=== PATIENT | male | born 1940 | race Caucasian/White ===

== ENCOUNTER 2016-09-21 08:21 | Inpatient (IN) | payer OTHER, MEDICARE ==
[~2016-09-21 08:21] MED LIST: ACETAMINOPHEN 325 MG TAB PO ONE; BISACODYL 10 MG SUPP PR PRN; CHLORHEXIDINE GLUC HIBICLENS 118 ML BTL TP ONE; CYCLOBENZAPRINE 10 MG TAB PO PRN; DIPHENOXYLATE/ATROPINE LOMOTIL 1 TAB PO PRN; FAMOTIDINE 20 MG TAB PO ONE; LACTULOSE 20 GM/30 ML UDCUP PO PRN; LR 1,000 ML IV SCH; MAGNESIUM HYDROXIDE 30 ML UDCUP PO PRN; METOCLOPRAMIDE 10 MG/2 ML VIAL IVP PRN; ONDANSETRON 4 MG/2 ML VIAL IVP PRN; ONDANSETRON DISINTEGRATING 4 MG TAB PO PRN; PHARMACY PAIN CONSULT 1 EA MISC PRN; POLYETHYLENE GLYCOL 3350 17 GM PKT PO PRN; PROMETHAZINE HCL 25 MG SUPPR PR PRN; PROMETHAZINE HCL 25 MG/ML VIAL IVP PRN; ROPI/epiNEPH/KETOROLAC/morphINE JOINT COCKTAIL IU ONE; TEMAZEPAM 15 MG CAP PO PRN; diphenhydrAMINE 25 MG CAP PO PRN
[2016-09-21] MEDS ORDERED: LR 1,000 ML IV ONE (08:38)
[2016-09-21] MEDS ORDERED: LIDOCAINE 1% 5 ML SDV ID PRN (08:38)
[2016-09-21] MEDS ORDERED: ACETAMINOPHEN 325 MG TAB ONE (08:48)
[2016-09-21] MEDS ORDERED: CEFAZOLIN 2 GM/DEXTROSE/100 ML BAG IV ONE (08:48)
[2016-09-21] MEDS ORDERED: FAMOTIDINE 20 MG TAB ONE (08:49)
[2016-09-21] MEDS ORDERED: LIDOCAINE 1% 5 ML SDV ONE (08:50)
[2016-09-21] MEDS ORDERED: MIDAZOLAM 2 MG/2 ML VIAL ONE (11:04)
[2016-09-21] MEDS ORDERED: PROPOFOL 200 MG/20 ML VIAL ONE ×2 (12:16→13:08)
[2016-09-21] MEDS ORDERED: ROPIVACAINE HCL 150 MG/30 ML INJ ONE (12:16)
--- NOTE | 2016-09-21 14:36 | DX ---
Two Views Left Knee: History: Postoperative followup. Comparison: Left knee June 03, 2016. Findings: Postoperative changes of total knee arthroplasty are noted. Alignment is anatomic. No compl ication is seen. Vascular and diffuse soft tissue calcifications are again noted. Impression: Status post total knee arthroplasty with no visible complications.
[2016-09-21] MEDS: oxyCODONE IR 5 MG TAB PO PRN ×4 (15:37→21:56)
[2016-09-21] MEDS: metFORMIN HCL 500 MG TAB PO SCH (16:01)
[2016-09-21] MEDS: ACETAMINOPHEN 325 MG TAB PO SCH ×3 (17:15→23:47)
[2016-09-21] MEDS: SENNOSIDES/DOCUSATE SODIUM TAB PO SCH ×2 (18:03→20:38)
[2016-09-21] MEDS ORDERED: NS BOLUS 1000 ML (Wide open) IV ONE (20:00)
[2016-09-21] MEDS: ceFAZolin 2 GM/DEXTROSE 100 ML IV SCH (20:35)
[2016-09-21] MEDS: ASPIRIN 325 MG TAB PO SCH (20:37)
[2016-09-21] MEDS: FAMOTIDINE 20 MG TAB PO SCH (20:37)
--- NOTE | 2016-09-21 20:55 | GCON ---
[f rep st] CONSULTATION MEDICINE CONSULTATION DATE OF CONSULTATION: 09/21/2016 CHIEF COMPLAINT: Lightheadedness and hypotension. HISTORY OF PRESENT ILLNESS: The patient is a 75-year-old male with a history of osteoarthritis who was admitted to the hospital by his orthopedic surgeon today and underwent total knee arthroplasty this afternoon. He did well initially postoperatively. However, this evening he began to complain of lightheadedness. His nurse noted that his blood pressure trended down, as low as the 60s systolic with the heart rate dipping into the 30s. At this point, his orthopedic surgeon was consulted and a Medicine consultation was requested. I immediately went to the bedside, at which time he was over fpc through a normal saline bolus. He reported that his lightheadedness and dizziness symptoms had resolved. He denied chest pain, shortness of breath, nausea, vomiting, or abdominal pain. He has had some postop pain which has been controlled with Tylenol and oxycodone. Per review of his perioperative course, he had just 400 cc fluid in during his surgery. Postoperatively, his blood pressure was 150/100, and he then received his usual antihypertensive medications, including 10 mg of amlodipine. He then dropped his blood pressure as above and became symptomatic. PAST MEDICAL HISTORY: 1. Osteoarthritis. 2. Hypertension. 3. History of CVA. 4. Prediabetes. 5. Hyperlipidemia. PAST SURGICAL HISTORY: Total knee arthroplasty. MEDICATIONS: Please see [facility] for completed, updated outpatient medication list. ALLERGIES: Amoxicillin. FAMILY HISTORY: Reviewed and is noncontributory. SOCIAL HISTORY: The patient lives independently. He denies tobacco use. REVIEW OF SYSTEMS: A 10-point review of systems was performed and was negative , except as per HPI. OBJECTIVE: VITAL SIGNS: Upon arrival to the bedside, his blood pressure was 68 /51, heart rate was 45, respiratory rate 20, he was 100% on 1.5 L of oxygen. He had a normal saline bolus going and wide-open and a repeat blood pressure fpc through this bolus was 123/83 with a heart rate of 62. GENERAL: The patient is awake, alert and oriented, in no acute distress. HEENT: Head is atraumatic, normocephalic. Pupils equal, round, and reactive to light. Extraocular muscles intact. Oropharynx is clear. Mucous membranes are moist. NECK: Supple. There is no JVD. HEART: Regular rate and rhythm without murmur. LUNGS: Clear to auscultation bilaterally. ABDOMEN: Soft, nontender. Normoactive bowel tone. EXTREMITIES: Left lower extremity is expectedly edematous in the postop setting. Dressing is in place; clean, dry and intact. His extremities are otherwise warm and well perfused. NEUROLOGIC: Exam is grossly nonfocal. LABORATORY DATA: His blood sugar this afternoon is 154. ASSESSMENT AND PLAN: The patient is a 75-year-old male who was admitted to the hospital for elective total knee arthroplasty and developed postoperative hypotension. 1. Hypotension. I suspect this is a volume issue, as he had only 400 cc of fluid during surgery, and he then received 10 mg of Norvasc prior to dropping his blood pressure. He responded beautifully to a 1 L normal saline bolus with a repeat blood pressure in the 120s over 80s. Will continue him on maintenance fluids and will pursue further workup should he have recurrent hypotension ( would consider PE, adrenal insufficiency, infection), but at this point I think he simply needed volume, to which he has responded well. I am going to hold his antihypertensives for now and these can be resumed as indicated once his blood pressure improves. 2. Bradycardia. This was in the setting of hypotension, likely secondary to volume depletion. His bradycardia resolved with correction of his blood pressure after a fluid bolus. Will monitor him on telemetry tonight to ensure no recurrent bradycardia. Low threshold for atropine should this recur. Would obtain a cardiology consult at that point as well. 3. Total knee arthroplasty, postop day 0. Postop management per Orthopedic Surgery. 4. Deep venous thrombosis prophylaxis. Will defer to the Surgery Service. CODE STATUS: The patient is full code. /[id number]/MODL MTDD
[2016-09-22] MEDS: oxyCODONE IR 5 MG TAB PO PRN ×4 (00:47→16:29)
[2016-09-22] MEDS: ceFAZolin 2 GM/DEXTROSE 100 ML IV SCH (04:32)
[2016-09-22] MEDS: ACETAMINOPHEN 325 MG TAB PO SCH ×2 (04:32→12:00)
[2016-09-22 05:40] LABS: HEMATOCRIT 31.1 % (40.0-51.0); HEMOGLOBIN 10.5 g/dL (13.7-17.5)
[2016-09-22] MEDS: FAMOTIDINE 20 MG TAB PO SCH (08:40)
[2016-09-22] MEDS: ASPIRIN 325 MG TAB PO SCH (08:40)
[2016-09-22] MEDS: SENNOSIDES/DOCUSATE SODIUM TAB PO SCH (08:40)
[2016-09-22] MEDS: metFORMIN HCL 500 MG TAB PO SCH (08:41)
[2016-09-22] MEDS ORDERED: LISINOPRIL/HCTZ 20/12.5MG 1 EA TAB PO SCH (09:00)
[2016-09-22] MEDS ORDERED: HYDROCHLOROTHIAZIDE 12.5 MG CAP PO SCH (09:00)
[2016-09-22] MEDS ORDERED: PRAVASTATIN SODIUM 40 MG TAB PO SCH (09:00)
[2016-09-22 11:25] VITALS: RESP 18; TEMP 98.4
--- NOTE | 2016-09-22 12:06 | SOAPPROG ---
SOAP Progress Note Assessment/Plan: Assessment: s/.p tka Plan: wbat d/c home once urinates seek attn for increasing pain and or complaint 09/22/16 12:04 s.p Subjective: unable to void not uncomfortable no cp or sob Objective: Vital Signs Temp Pulse Resp BP Pulse Ox 36.9 C 69 18 144/62 H 91 L 09/22/16 11:20 09/22/16 11:20 09/22/16 11:20 09/22/16 11:20 09/22/16 11:20 Laboratory Results 09/22/16 04:41 09/21/16 09/22/16 09/23/16 05:59 05:59 05:59 Intake Total 5000 250 Output Total 1820 Balance 3180 250 dressing intact \intact pf,df,ehl toes warm and pink neg homans xrays stable alignemnt no fx or lucencyt ICD10 Worksheet Patient Problems: Problems Problem Status Diagnosed Arthritis of knee Acute - ICD10 Problem Qualifiers (1) Arthritis of knee
--- NOTE | 2016-09-22 12:08 | PDIAF ---
- Diagnosis Diagnosis: knee djd Code Status: Full Code - Medication Management Discharge Medications: Medications to Continue on Transfer Herbals/Supplements -Info Only 1 each PO DAILY 12/02/12 [Last Taken 3 Days Ago] metFORMIN HCL [Glucophage 500 mg (*)] 500 mg PO DAILY 12/02/12 [Last Taken 3 Days Ago] Acetaminophen [Tylenol 325mg (*)] 325 mg PO DAILY PRN 08/11/16 [Last Taken 3 Days Ago] Ibuprofen [Motrin (*)] 200 mg PO DAILY PRN 08/11/16 [Last Taken 3 Days Ago] LISINOPRIL/HYDROCHLOROTHIAZIDE [PRINZIDE 20-25 MG TABLET] 1 each PO DAILY [Last Taken 3 Days Ago] Lovastatin 40 mg PO DAILY 08/11/16 [Last Taken 3 Days Ago] amLODIPine BESYLATE [Norvasc 10 mg (*)] 10 mg PO DAILY 08/11/16 [Last Taken 3 Days Ago] Aspirin [Aspirin 325 mg (*)] 325 mg PO DAILY #0 tab 09/22/16 [Last Taken Unknown ] oxyCODONE IR [Oxycodone Ir (*)] 5 - 10 mg PO Q3HRS PRN #80 tab 09/22/16 [Last Taken Unknown] Discharge Medications: Refer to the Discharge Home Medication list for PRN reason. - Orders Services needed: Physical Therapy Diet Recommendation: no restrictions on diet Diet Texture: Regular Texture Diet Wound Care Instructions: wbat. anterior hip precautions. daily dressing changes. remedios hose x 2 weeks. shower without bandage. no soaking. f/u at two weeks. seek attn for increasing pain, drainage, leg pain or other focal complaint - Follow Up Care Current Providers and Referrals: Montana Escalera MD [Primary Care Provider] -
[2016-09-22 15:58] VITALS: BP 121/67; PULSE 64; O2SAT 92
--- NOTE | 2016-09-23 04:31 | GOP ---
[f rep st] OPERATIVE REPORT DATE OF OPERATION: 09/21/2016 SURGEON: Talib Weiss MD TURNING SANDER OPERATOR: Lebron Cheng, INSTRUCTOR WATCH ASSEMBLY, [employer] W[employer]ING TECHNICIAN, surgical rn, who was a medical necessity for the entire ty of the case. PREOPERATIVE DIAGNOSIS: 1. Left knee degenerative joint disease. 2. Right knee degenerative joint disease. POSTOPERATIVE DIAGNOSIS: 1. Left knee degenerative joint disease. 2. Right knee degenerative joint disease. PROCEDURE PERFORMED: 1. Left total knee arthroplasty. 2. Hardware removal. 3. Right knee cortisone injection. FINDINGS: ESTIMATED BLOOD LOSS: 100 mL. INDICATIONS: The patient is a 75-year-old gentleman who has a failed unicompartmental medial arthrop lasty to his left knee. This is malpositioned and erosive. He has failed all attempts at conservati ve management. He has arthritis to his right knee as well. I have recommended left total knee repla cement with revision of his unicompartmental knee and right knee cortisone injection concomitantly. He understood the risks, benefits, alternatives, and wished to proceed. Written consent was signed a nd placed in the patient's chart. DESCRIPTION OF PROCEDURE: The patient was identified in the preanesthesia area. The right and left knee were demarcated individually with indelible marker. He was given 2 g of Ancef intravenous en ro el to the operative suite. In the OR, he was taken to the operative suite. Spinal anesthetic was p laced. He was positioned in the supine position. All bony prominences were well padded. Attention was first turned to the right knee. A sterile prep was made and using an 18-gauge needle, approximat candelario 60 cc of clear yellow synovial fluid was withdrawn. The knee was instilled with 1 cc of Kenalog and 5 cc of 2% lidocaine plain. A sterile bandage was applied. Attention was turned to the left low er extremity which was sterilely prepped and draped in usual fashion. A tourniquet was applied to th e upper thigh. The limb was exsanguinated with Esmarch bandage. Tourniquet inflated to 275 mmHg. A ppropriate time-out procedure had been carried out. The previous incision was opened. A standard anterior midline incision was made. Thick subcutaneous flaps were elevated, followed by medial parapatellar arthrotomy. Upon entry into the joint, there w as gross metal debris and the synovium was black. This was debrided in extensive fashion throughout and all metallic debris was withdrawn to the best of my ability. The previous unicompartmental knee was grossly loose from the femur, tibia, and the plastic was malpositioned. The components were marsha moe. Attention was then turned to the femur. This was delivered through the wound with flexion of t he knee. An intramedullary guide rita was placed and the distal cutting block affixed. The distal cu t was made. Bony fragments were withdrawn. Attention was turned to the tibia which was delivered fo rward with the use of posterior retractor. A cut was made just deep to the medial tibial articular s urface. The bony fragment was withdrawn. Appropriate soft tissue release was carried out to balance the knee in extension. The knee was brought to a flexed position. The distal cutting block was rafael papo. A size 5 cutting block was affixed to the distal surface of the femur. The anterior, posterior , and chamfer cuts were made, followed by the trochlear box cut. Trial reduction was placed. The jennifer g nuts were drilled. Attention was turned to the tibia. A size 5 tibial tray was selected. This wa s placed in the correct orientation, position. Central canal was reamed, followed by cutting of the lateral fins. Trial reduction over a 17 mm polyethylene allowed full extension and flexion. There w as slight instability with flexion-extension arc. Decision was made to use a greater spacer. The tr ial components were withdrawn. The bony surfaces thoroughly cleansed and dried with pulsatile lavage solution. In a sequential fashion, the tibial, femoral, and patellar components were cemented. A c emented over 18 mm trial polyethylene. All marginal cement was withdrawn. The capsule was injected with a joint cocktail of ropivacaine, morphine, Toradol, and epinephrine. A 20 mm polyethylene was t hen impacted and confirmed to be fully seated. The knee was taken through full flexion and extension with mild varus and valgus laxity. This was felt to be appropriate. The wound was copiously irriga remedios, closed across the arthrotomy with #1 Ethibond suture. The subcutaneous tissue closed using 2-0 Monocryl. Skin was stapled. A sterile dressing was applied. The patient was awakened, extubated, t aken to recovery room in good, stable condition. TOTAL TOURNIQUET TIME: 1 hour and 5 minutes. COMPLICATIONS: The metal debris from the previously failed unicompartmental arthroplasty. IMPLANTS: The DePuy Attune femur size 5, and DePuy Attune tibia size 6, a 41 mm all poly patella, an d an Attune tibial insert, 5 x 20 mm. DISPOSITION: To the recovery room, then the floor. He will be weightbearing as tolerated and follow standard postoperative recovery. /[id number]/MODL
== END 2016-09-22 16:46 | disposition home health service (06) | DRG 468 ==
LOC: F3N 08:21
PROVIDERS: ADMIT Orthopaedic Surgery; ATTEND Orthopaedic Surgery
DX: T84.092A Other mechanical complication of internal right knee prosthesis, initial encounter (principal); M17.0 Bilateral primary osteoarthritis of knee; I95.81 Postprocedural hypotension; R00.1 Bradycardia, unspecified; I10 Essential (primary) hypertension; E78.2 Mixed hyperlipidemia; E88.81 Metabolic syndrome and other insulin resistance; Z86.73 Personal history of transient ischemic attack (TIA), and cerebral infarction without residual deficits
CPT/HCPCS: 97110-GP; 97116-GP; 97161-GP; 97165-GO; 97530-GP; C1713; G8978-GP-CK; G8979-GP-CI; G8987-GO-CI; G8988-GO-CI; G8989-GO-CI; J0171; J0690; J1885; J2250; J2704; J2795

== ENCOUNTER → 2016-11-12 | Outpatient (CLI) | payer OTHER, MEDICARE | LOC: BMCIMAGING 08:19 | PROVIDERS: ATTEND Physician Assistant | DX: Z09 Encounter for follow-up examination after completed treatment for conditions other than malignant neoplasm (principal); Z96.652 Presence of left artificial knee joint ==

== ENCOUNTER → 2017-05-12 | Outpatient (CLI) | payer OTHER, MEDICARE | LOC: BMCIMAGING 08:05 | PROVIDERS: ATTEND Physician Assistant | DX: Z47.1 Aftercare following joint replacement surgery (principal); Z96.652 Presence of left artificial knee joint ==